=== PATIENT | male | born 1975 | race Caucasian/White ===

== ENCOUNTER 2018-06-02 08:03 | Emergency (ER) | payer MEDICAID ==
[2018-06-02 08:13] VITALS: BP 139/97
[2018-06-02] MEDS ORDERED: CLINDAMYCIN 150 MG CAPSULE PO STA (08:36)
[2018-06-02] MEDS ORDERED: IBUPROFEN 400 MG TABLET PO STA (08:36)
--- NOTE | 2018-06-02 08:40 | ED Physician Documentation ---
History of Present Illness - Stated complaint Stated Complaint: WOUND CHECK - Chief complaint Chief Complaint: Wound - Additonal information Additional information: hx from pt 43 male healthy first had a burn across back of right knee 2/2 dog leash then after being in the [place] it became red itchy and now swollen and painful as well Review of Systems Constitutional: denies: Fever Skin: reports: Rash PD PAST MEDICAL HISTORY - Past Medical History Past Medical History: Yes Psych: Other Other Past Medical History: audio hallucinations takes Zyprexa - Past Surgical History Past Surgical History: Yes General: Other - Present Medications Home Medications: Ambulatory Orders Medication Instructions Recorded Confirmed Clindamycin [Cleocin] 300 mg PO Q6H 7 Days capsule 06/02/18 Ibuprofen [Motrin] 400 mg PO Q6H PRN #30 tablet 06/02/18 OLANZapine [Zyprexa] 10 mg PO DAILY 06/02/18 06/02/18 - Allergies Allergies/Adverse Reactions: Allergies Allergy/AdvReac Type Severity Reaction Status Date / Time No Known Drug Allergies Allergy Verified 06/02/18 08:13 - Social History Does the pt smoke?: No Smoking Status: Never smoker Does the pt drink ETOH?: No Does the pt have substance abuse?: No - Immunizations Immunizations are current?: Yes PD ED PE NORMAL - Vitals Vital signs reviewed: Yes - Cardiac Cardiac: RRR - Respiratory Respiratory: No respiratory distress, Clear bilaterally - Derm Derm: Other (see ext) - Extremities Extremities: Other (R popliteal region red warm indirated with surrounding erythema, MSV intact, not fluctuant) - Neuro Neuro: Alert and oriented X 3 Results - Vitals Vitals: Vital Signs - 24 hr 06/02/18 08:11 Temperature 36.5 C Heart Rate 93 Respiratory 18 Rate Blood Pressure 139/97 H O2 Saturation 98 Oxygen O2 Source Room air PD MEDICAL DECISION MAKING - ED course ED course: bedside sono shows no abscess fluid collection at this time but pt advised may develop into same pt received a MSE an infection is identified needing tx but not imminently dangerous req surgery admit etc feel pt safe for dc with close fup - Sepsis Event Vital Signs: Vital Signs - 24 hr 06/02/18 08:11 Temperature 36.5 C Heart Rate 93 Respiratory 18 Rate Blood Pressure 139/97 H O2 Saturation 98 Oxygen O2 Source Room air Departure - Departure Disposition: 01 Home, Self Care Clinical Impression: Cellulitis Qualifiers: Site of cellulitis: extremity Site of cellulitis of extremity: lower extremity Laterality: right Qualified Code(s): L03.115 - Cellulitis of right lower limb Condition: Good Instructions: ED Infec Skin Cellulitis Prescriptions: Clindamycin [Cleocin] 300 mg PO Q6H 7 Days capsule Ibuprofen [Motrin] 400 mg PO Q6H PRN #30 tablet PRN Reason: Pain Comments: At this point there is no abscess seen on ultrasound So no incision an drainage is needed - yet But the infection needs antibiotics The antibiotic I prescribed, clindamycin, is very strong and covers many different bacteria But it can be hard on the GI system and cause diarrhea - so please take a probiotic or eat yogurt with cultures while on this medication If not better by , or if getting worse at any time, please come back to the ER - sometimes an abscess can form despite the antibiotics and require drainage And please get your blood pressure rechecked - it was high today
== END 2018-06-02 08:48 | disposition home or self-care (01) ==
LOC: ED 08:03
DX: L03.115 Cellulitis of right lower limb (principal)
CPT/HCPCS: 99283; A9270